=== PATIENT | male | born 1960 | race African-American/Black ===

== ENCOUNTER → 2018-09-17 | Outpatient (CLI) | payer OTHER ==
--- NOTE | 2018-09-17 15:05 | CARD ---
MR#: [id number] Date of Study: 09/17/2018 Ordering Physician: STAR FLORES, Referring Physician: STAR FLORES, Tech: Judith Barrera APPROVED REPORT EXAM: Two-dimensional and M-mode echocardiogram with Doppler and color Doppler. Other Information Quality : GoodHR: 89bpm INDICATION Murmur RISK FACTORS Hypertension 2D DIMENSIONS RVDd3.4 (2.9-3.5cm)Left Atrium(2D)2.9 (1.6-4.0cm) IVSd1.0 (0.7-1.1cm)Aortic Root(2D)3.1 (2.0-3.7cm) LVDd4.0 (3.9-5.9cm)LVOT Diameter2.2 (1.8-2.4cm) PWd0.8 (0.7-1.1cm)LVDs2.5 (2.5-4.0cm) FS (%) 37.9 %SV48.0 ml Aortic Valve AoV Peak Emmett.140.3cm/sAoV VTI24.0cm AO Peak GR.7.9mmHgLVOT Peak Emmett.88.3cm/s LVOT VTI 18.01cmAO Mean GR.4mmHg ANAYELI (VMAX)1.56fq7SDE (VTI)2.81cm2 AI P 1/2 Ypoi152qg Mitral Valve MV E Vpknrsbd10.5cm/sMV DECEL CYTW198ig MV A Egyjrznl09.3cm/sMV CHL78vr E/A Ratio1.1MVA (PHT)4.50cm2 TDI E/Lateral E'5.3E/Medial E'7.3 Tricuspid Valve TR P. Gwcuwxwh835gx/sRAP QPILKRLR0yzOo TR Peak Gr.32svQuNZHR66yoCl Pulmonary Vein S1 Saddsijg86.3cm/sD2 Safcftha94.5cm/s PVa fmgufmew75bisn LEFT VENTRICLE The left ventricle is normal size. There is normal left ventricular wall thickness. The left ventricu lar systolic function is normal and the ejection fraction is within normal range. The Ejection Fracti on is 55-60%. There is normal LV segmental wall motion. Transmitral Doppler flow pattern is Grade II- pseudonormal filling dynamics. RIGHT VENTRICLE The right ventricle is normal size. There is normal right ventricular wall thickness. The right ventr icular systolic function is normal. ATRIA The left atrium size is normal. The right atrium size is normal. The interatrial septum is intact wit h no evidence for an atrial septal defect or patent foramen ovale as noted on 2-D or Doppler imaging. AORTIC VALVE The aortic valve is thickened but opens well. Doppler and Color Flow revealed trace aortic regurgitat ion. There is no significant aortic valvular stenosis. MITRAL VALVE The mitral valve is normal in structure and function. There is no evidence of mitral valve prolapse. There is no mitral valve stenosis. Doppler and Color Flow revealed no mitral valve regurgitation note d. TRICUSPID VALVE The tricuspid valve is normal in structure and function. Doppler and Color Flow revealed trace tricus pid regurgitation. There is no tricuspid valve stenosis. PULMONIC VALVE The pulmonic valve is not well visualized. Doppler and Color Flow revealed no pulmonic valvular regur gitation. GREAT VESSELS The aortic root is normal in size. The IVC is normal in size and collapses >50% with inspiration. PERICARDIAL EFFUSION There is no evidence of significant pericardial effusion. Critical Notification Critical Value: No <Conclusion> The left ventricle is normal size. The left ventricular systolic function is normal and the ejection fraction is within normal range. The Ejection Fraction is 55-60%. There is no significant aortic valvular stenosis. Doppler and Color Flow revealed trace aortic regurgitation. Doppler and Color Flow revealed no mitral valve regurgitation noted. Doppler and Color Flow revealed trace tricuspid regurgitation. Signed by : Damian Ho MD Electronically Approved : 09/17/2018 15:03:39
== END | disposition home or self-care (01) ==
LOC: ECHO 13:27
PROVIDERS: ATTEND Nurse Practitioner Gerontology
DX: R01.1 Cardiac murmur, unspecified (principal)
CPT/HCPCS: 93306